=== PATIENT | female | born 1990 | race Caucasian/White ===

== ENCOUNTER 2016-08-24 20:40 | Emergency (ER) | payer OTHER ==
[2016-08-24 23:43] VITALS: BP 124/83; PULSE 90; RESP 18; TEMP 98.2; O2SAT 97
== END 2016-08-24 21:00 | disposition home or self-care (01) | DRG 605 ==
LOC: ED 20:40
DX: S91.032A Puncture wound without foreign body, left ankle, initial encounter (principal); W20.8XXA Other cause of strike by thrown, projected or falling object, initial encounter; Y93.F9 Activity, other caregiving; Y92.238 Other place in hospital as the place of occurrence of the external cause; Y99.0 Civilian activity done for income or pay
CPT/HCPCS: 99282

== ENCOUNTER 2016-09-19 05:21 | Emergency (ER) | payer OTHER ==
[2016-09-19 05:38] VITALS: TEMP 98.8
[2016-09-19] MEDS: SODIUM CHLORIDE 0.9% FLUSH 10 ML SOL IV PRN ×3 (06:00→07:36)
[2016-09-19] MEDS ORDERED: DIHYDROERGOTAMINE 1 MG/ML IV ONE (06:01)
[2016-09-19] MEDS ORDERED: SODIUM CHLORIDE 0.9% 1000ML 1,000 ML IV ONE (06:01)
[2016-09-19] MEDS ORDERED: METOCLOPRAMIDE HYDROCHLORIDE 5 MG/ML SOL IV ONE (06:02)
[2016-09-19] MEDS ORDERED: METOCLOPRAMIDE HYDROCHLORIDE 5 MG/ML SOL ONE (06:07)
[2016-09-19] MEDS ORDERED: KETOROLAC TROMETHAMINE 30 MG/ML SOL IV ONE (06:27)
[2016-09-19] MEDS ORDERED: KETOROLAC TROMETHAMINE 30 MG/ML SOL ONE (06:28)
[2016-09-19] MEDS ORDERED: ONDANSETRON HCL 4 MG/2 ML SOL IV ONE (07:18)
[2016-09-19] MEDS ORDERED: HYDROMORPHONE HCL 2 MG/ML 1 ML SOL IV ONE (07:18)
[2016-09-19] MEDS ORDERED: ONDANSETRON HCL 4 MG/2 ML SOL ONE (07:20)
[2016-09-19] MEDS ORDERED: HYDROMORPHONE HCL 2 MG/ML 1 ML SOL ONE (07:28)
[2016-09-19 07:45] VITALS: RESP 14
[2016-09-19 10:04] VITALS: BP 102/54; PULSE 68; O2SAT 97
== END 2016-09-19 10:30 | disposition home or self-care (01) | DRG 103 ==
LOC: ED 05:21
DX: G43.509 Persistent migraine aura without cerebral infarction, not intractable, without status migrainosus (principal); W51.XXXA Accidental striking against or bumped into by another person, initial encounter
CPT/HCPCS: 99285; J1170; J1885; J2405; J2765

== ENCOUNTER 2017-07-10 08:31 | Emergency (ER) | payer OTHER ==
[2017-07-10 08:44] VITALS: TEMP 97.8
[2017-07-10] MEDS ORDERED: MORPHINE SULFATE 10 MG/ML SOL IV ONE (08:52)
[2017-07-10] MEDS ORDERED: KETOROLAC TROMETHAMINE 30 MG/ML SOL IV ONE (08:53)
[2017-07-10] MEDS ORDERED: DIAZEPAM 5MG/ML SOL IV ONE (08:53)
[2017-07-10] MEDS ORDERED: KETOROLAC TROMETHAMINE 30 MG/ML SOL ONE (08:56)
[2017-07-10] MEDS ORDERED: MORPHINE SULFATE 10 MG/ML SOL ONE (08:56)
[2017-07-10] MEDS ORDERED: DIAZEPAM 5 MG TAB PO ONE (09:04)
[2017-07-10] MEDS ORDERED: DIAZEPAM 5 MG TAB ONE (09:12)
[2017-07-10 12:00] VITALS: BP 124/85; PULSE 80; RESP 18; O2SAT 95
== END 2017-07-10 10:56 | disposition home or self-care (01) | DRG 552 ==
LOC: ED 08:31
DX: M54.5 Low back pain (principal); M62.830 Muscle spasm of back
CPT/HCPCS: 72120; 99285; J1885; J2270; A9270-GY